=== PATIENT | male | born 1930 | race Caucasian/White ===

== ENCOUNTER 2017-05-01 19:45 | Emergency (ER) | payer OTHER, MEDICAID ==
[~2017-05-01 19:45] MED LIST: ASPIR LOW81 MG PO; ATENOLOL PO; ATORVASTATIN CA40 MG PO; BAY PO; BETHANECHOL25 MG PO; COL100 PO; FLO4 PO; FUROSEMIDE20 MG PO; L20 PO; LAC15L PO; LANTI SQ; LANTUS SOLOS100 U/M1 SQ; LIPI20 PO; LISINOPRIL20 MG PO; METFORMIN HCL500 MG PO; METFORMIN500 MG PO; PRI20 PO; PROPECIA1 MG PO; PROS5 PO; PROSCAR5 MG PO; REG5 PO; SYN25 PO; TENORMIN25 MG PO; TRE400 PO
[2017-05-01 20:46] LABS: BASOPHIL % 0.5 % (0-2); RED CELL DISTRIBUTION WIDTH 13.4 % (11.5-14.5)
[2017-05-01 20:49] LABS: PLATELET COUNT 124 x10^3mcL (130-400)
[2017-05-01 20:54] LABS: CALCIUM 9.5 mg/dL (8.5-10.1); CARBON DIOXIDE 23.3 mmol/L (21-32); CHLORIDE SERUM 105 mmol/L (98-107); CREATININE SERUM 1.8 mg/dL (0.7-1.3); GLUCOSE SERUM 195 mg/dL (74-106); POTASSIUM SERUM 4.9 mmol/L (3.5-5.1); SODIUM SERUM 140 mmol/L (136-145)
[2017-05-01 20:58] LABS: ALBUMIN 4.1 g/dL (3.4-5.0); ALKALINE PHOSPHATASE 100 U/L (46-116); ALT/SGPT 27 U/L (16-63); AST/SGOT 24 U/L (15-37); BILIRUBIN TOTAL 0.6 mg/dL (0.20-1.00); TOTAL PROTEIN, SERUM 7.8 g/dL (6.4-8.2)
[2017-05-01 22:04] VITALS: BP 132/89
== END 2017-05-01 22:04 | disposition home or self-care (01) ==
LOC: ED 19:45
PROVIDERS: Emergency Medicine
DX: R10.84 Generalized abdominal pain (principal); R10.30 Lower abdominal pain, unspecified; I10 Essential (primary) hypertension; E11.9 Type 2 diabetes mellitus without complications; E78.00 Pure hypercholesterolemia, unspecified; Z79.4 Long term (current) use of insulin; Z79.84 Long term (current) use of oral hypoglycemic drugs
CPT/HCPCS: J2405; J7030

== ENCOUNTER → 2017-09-05 | Outpatient (CLI) | payer OTHER, MEDICAID ==
[2017-09-05 10:08] LABS: ALKALINE PHOSPHATASE 91 U/L (46-116); ALT/SGPT 31 U/L (16-63); AST/SGOT 24 U/L (15-37); BILIRUBIN TOTAL 0.4 mg/dL (0.20-1.00); CALCIUM 9.4 mg/dL (8.5-10.1); CARBON DIOXIDE 25.3 mmol/L (21-32); CHLORIDE SERUM 108 mmol/L (98-107); CHOLESTEROL 160 mg/dL (<200); CREATININE SERUM 1.8 mg/dL (0.7-1.3); GLUCOSE SERUM 118 mg/dL (74-106); SODIUM SERUM 140 mmol/L (136-145); TOTAL PROTEIN, SERUM 7.9 g/dL (6.4-8.2); TRIGLYCERIDES 59 mg/dL (<150)
[2017-09-05 10:11] LABS: CHOLESTEROL/HDL RATIO 2.5; HDL CHOLESTEROL 63 mg/dL (40-60)
[2017-09-05 10:33] LABS: BASOPHIL % 0.3 % (0-2); RED CELL DISTRIBUTION WIDTH 13.8 % (11.5-14.5)
[2017-09-05 10:34] LABS: PLATELET COUNT 118 x10^3mcL (130-400)
[2017-09-05 10:52] LABS: microscopic required? YES; urine erythrocyte 1+ (NEGATIVE)
[2017-09-05 11:19] LABS: CREATININE UR 40.6 mg/dL
== END | disposition home or self-care (01) ==
LOC: LB 08:59
PROVIDERS: Family Medicine
DX: N18.3 Chronic kidney disease, stage 3 (moderate) (principal); I12.9 Hypertensive chronic kidney disease with stage 1 through stage 4 chronic kidney disease, or unspecified chronic kidney disease; E11.22 Type 2 diabetes mellitus with diabetic chronic kidney disease; E78.5 Hyperlipidemia, unspecified
CPT/HCPCS: 84153

== ENCOUNTER → 2018-05-15 | Outpatient (CLI) | payer OTHER, MEDICAID ==
[2018-05-15 09:24] LABS: BASOPHIL % 0.3 % (0-2)
[2018-05-15 09:26] LABS: PLATELET COUNT 128 x10^3mcL (130-400); RED CELL DISTRIBUTION WIDTH 14.6 % (11.5-14.5)
[2018-05-15 09:33] LABS: ALBUMIN 4.1 g/dL (3.4-5.0); ALKALINE PHOSPHATASE 97 U/L (46-116); ALT/SGPT 37 U/L (16-63); AST/SGOT 21 U/L (15-37); BILIRUBIN TOTAL 0.5 mg/dL (0.20-1.00); CALCIUM 9.5 mg/dL (8.5-10.1); CHLORIDE SERUM 111 mmol/L (98-107); CREATININE SERUM 1.8 mg/dL (0.7-1.3); GLUCOSE SERUM 143 mg/dL (74-106); SODIUM SERUM 141 mmol/L (136-145); TOTAL PROTEIN, SERUM 8.1 g/dL (6.4-8.2)
[2018-05-15 11:11] LABS: microscopic required? YES; urine erythrocyte 1+ (NEGATIVE)
[2018-05-15 12:22] LABS: POTASSIUM SERUM 5.7 mmol/L (3.5-5.1)
[2018-05-16 20:21] LABS: microalbumin:creatinine ratio 22.9 (0.0-30.0)
== END | disposition home or self-care (01) ==
LOC: LB 08:56
PROVIDERS: Internal Medicine
DX: N18.3 Chronic kidney disease, stage 3 (moderate) (principal); I12.9 Hypertensive chronic kidney disease with stage 1 through stage 4 chronic kidney disease, or unspecified chronic kidney disease; E11.22 Type 2 diabetes mellitus with diabetic chronic kidney disease; E78.5 Hyperlipidemia, unspecified
CPT/HCPCS: 84153

== ENCOUNTER → 2018-08-21 | Outpatient (CLI) | payer OTHER, MEDICAID ==
[2018-08-21 09:44] LABS: ALBUMIN 3.7 g/dL (3.4-5.0); ALKALINE PHOSPHATASE 105 U/L (46-116); ALT/SGPT 43 U/L (16-63); AST/SGOT 62 U/L (15-37); CALCIUM 9.4 mg/dL (8.5-10.1); CARBON DIOXIDE 27.4 mmol/L (21-32); CHLORIDE SERUM 107 mmol/L (98-107); CREATININE SERUM 1.6 mg/dL (0.7-1.3); GLUCOSE SERUM 271 mg/dL (74-106); POTASSIUM SERUM 4.9 mmol/L (3.5-5.1); SODIUM SERUM 142 mmol/L (136-145); TOTAL PROTEIN, SERUM 7.6 g/dL (6.4-8.2)
[2018-08-21 09:59] LABS: BASOPHIL % 0.3 % (0-2); PLATELET COUNT 130 x10^3mcL (130-400); RED CELL DISTRIBUTION WIDTH 13.5 % (11.5-14.5)
[2018-08-21 11:54] LABS: microscopic required? YES; urine erythrocyte 2+ (NEGATIVE)
== END | disposition home or self-care (01) ==
LOC: LB 08:36
PROVIDERS: Internal Medicine
DX: I12.9 Hypertensive chronic kidney disease with stage 1 through stage 4 chronic kidney disease, or unspecified chronic kidney disease (principal); E11.22 Type 2 diabetes mellitus with diabetic chronic kidney disease; E78.5 Hyperlipidemia, unspecified

== ENCOUNTER 2018-11-12 04:20 | Emergency (ER) | payer OTHER, MEDICAID ==
[~2018-11-12] VITALS: Ht 185.4 cm; Wt 69.1 kg
[2018-11-12 04:26] VITALS: Ht 185.4 cm; Wt 69.1 kg
[2018-11-12 05:19] LABS: BASOPHIL % 0.3 % (0-2); PLATELET COUNT 116 x10^3mcL (130-400); RED CELL DISTRIBUTION WIDTH 14.5 % (11.5-14.5)
[2018-11-12 05:28] LABS: CALCIUM 8.8 mg/dL (8.5-10.1); CARBON DIOXIDE 21.4 mmol/L (21-32); CHLORIDE SERUM 112 mmol/L (98-107); CREATININE SERUM 1.6 mg/dL (0.7-1.3); GLUCOSE SERUM 132 mg/dL (74-106); POTASSIUM SERUM 4.5 mmol/L (3.5-5.1); SODIUM SERUM 143 mmol/L (136-145)
[2018-11-12 05:33] LABS: ALBUMIN 3.6 g/dL (3.4-5.0); ALKALINE PHOSPHATASE 99 U/L (46-116); ALT/SGPT 33 U/L (16-63); AST/SGOT 31 U/L (15-37); BILIRUBIN TOTAL 0.46 mg/dL (0.20-1.00); TOTAL PROTEIN, SERUM 6.8 g/dL (6.4-8.2)
[2018-11-12 05:59] VITALS: BP 142/81
== END 2018-11-12 05:59 | disposition home or self-care (01) ==
LOC: ED 04:20
PROVIDERS: Emergency Medicine
DX: K57.90 Diverticulosis of intestine, part unspecified, without perforation or abscess without bleeding (principal); K80.80 Other cholelithiasis without obstruction; I10 Essential (primary) hypertension; E11.9 Type 2 diabetes mellitus without complications; E78.00 Pure hypercholesterolemia, unspecified; E03.9 Hypothyroidism, unspecified; Z98.890 Other specified postprocedural states
CPT/HCPCS: 36415

== ENCOUNTER → 2019-05-06 | Outpatient (CLI) | payer OTHER, MEDICAID ==
[2019-05-06 10:19] LABS: BASOPHIL % 0.2 % (0-2); PLATELET COUNT 132 x10^3mcL (130-400)
== END | disposition home or self-care (01) ==
LOC: LB 08:14
PROVIDERS: Internal Medicine Gastroenterology
DX: R10.9 Unspecified abdominal pain (principal); Z79.899 Other long term (current) drug therapy
CPT/HCPCS: 87338

== ENCOUNTER 2019-05-14 05:02 | Emergency (ER) | payer OTHER, MEDICAID ==
[~2019-05-14] VITALS: Ht 190.5 cm; Wt 69.4 kg
[2019-05-14 05:15] VITALS: Ht 190.5 cm; Wt 69.4 kg
[2019-05-14 06:33] LABS: BASOPHIL % 0.3 % (0-2); PLATELET COUNT 133 x10^3mcL (130-400); RED CELL DISTRIBUTION WIDTH 13.1 % (11.5-14.5)
[2019-05-14 06:57] LABS: CALCIUM 9.2 mg/dL (8.5-10.1); CARBON DIOXIDE 24.2 mmol/L (21-32); CHLORIDE SERUM 109 mmol/L (98-107); CREATININE SERUM 1.5 mg/dL (0.7-1.3); GLUCOSE SERUM 163 mg/dL (74-106); POTASSIUM SERUM 4.8 mmol/L (3.5-5.1); SODIUM SERUM 142 mmol/L (136-145)
[2019-05-14 07:02] LABS: ALBUMIN 3.5 g/dL (3.4-5.0); ALKALINE PHOSPHATASE 101 U/L (46-116); ALT/SGPT 34 U/L (16-63); AST/SGOT 40 U/L (15-37); TOTAL PROTEIN, SERUM 7.3 g/dL (6.4-8.2)
[2019-05-14 08:15] VITALS: BP 140/65
[2019-05-14 08:15] LABS: microscopic required? YES; urine erythrocyte 1+ (NEGATIVE)
== END 2019-05-14 08:53 | disposition home or self-care (01) ==
LOC: ED 05:02
DX: R53.1 Weakness (principal); I10 Essential (primary) hypertension; E11.9 Type 2 diabetes mellitus without complications; E78.00 Pure hypercholesterolemia, unspecified; R41.0 Disorientation, unspecified
CPT/HCPCS: 36415; 82962; J2405; Q0092

== ENCOUNTER 2019-06-08 00:47 | Emergency (ER) | payer OTHER, MEDICAID ==
[~2019-06-08] VITALS: Ht 182.9 cm; Wt 70.8 kg
[2019-06-08 00:54] VITALS: Ht 182.9 cm; Wt 70.8 kg
[2019-06-08 01:57] LABS: BASOPHIL % 0.4 % (0-2); PLATELET COUNT 133 x10^3mcL (130-400); RED CELL DISTRIBUTION WIDTH 13.7 % (11.5-14.5)
[2019-06-08 02:07] LABS: CALCIUM 8.9 mg/dL (8.5-10.1); CARBON DIOXIDE 24.6 mmol/L (21-32); CHLORIDE SERUM 105 mmol/L (98-107); CREATININE SERUM 1.7 mg/dL (0.7-1.3); GLUCOSE SERUM 198 mg/dL (74-106); POTASSIUM SERUM 4.5 mmol/L (3.5-5.1); SODIUM SERUM 139 mmol/L (136-145)
[2019-06-08 02:17] LABS: ALBUMIN 3.6 g/dL (3.4-5.0); ALKALINE PHOSPHATASE 105 U/L (46-116); ALT/SGPT 31 U/L (16-63); AST/SGOT 36 U/L (15-37); TOTAL PROTEIN, SERUM 7.4 g/dL (6.4-8.2)
[2019-06-08 02:20] LABS: C REACTIVE PROTEIN < 0.2 mg/dL (<=0.9); FREE T4 0.99 ng/dL (0.76-1.46); T4(THYROXINE) 9.2 ug/dL (4.7-13.3)
[2019-06-08 02:21] LABS: T3 TOTAL 1.37 ng/mL
[2019-06-08 02:22] LABS: CK-MB 13.1 ng/mL (0-3.6)
[2019-06-08 02:45] LABS: ERYTHROCYTE SED RATE 40 mm/hr (0-20)
[2019-06-08 03:10] LABS: UA SPECIFIC GRAVITY <=1.005 (1.005-1.035); microscopic required? YES; urine erythrocyte 1+ (NEGATIVE)
[2019-06-08 04:14] VITALS: BP 149/62
== END 2019-06-08 04:14 | disposition home or self-care (01) ==
LOC: ED 00:47
PROVIDERS: Specialist
DX: R42 Dizziness and giddiness (principal); R06.02 Shortness of breath; I10 Essential (primary) hypertension; E11.9 Type 2 diabetes mellitus without complications; E78.00 Pure hypercholesterolemia, unspecified; Z98.890 Other specified postprocedural states
CPT/HCPCS: 36415; 36600; 83880; 84439; 87804

== ENCOUNTER 2019-11-19 23:46 | Emergency (ER) | payer OTHER, MEDICAID ==
[~2019-11-19] VITALS: Ht 182.9 cm; Wt 71.2 kg
[2019-11-20] VITALS: Ht 182.9 cm; Wt 71.2 kg
[2019-11-20 00:44] LABS: BASOPHIL % 0.1 % (0-2); RED CELL DISTRIBUTION WIDTH 13.5 % (11.5-14.5)
[2019-11-20 00:45] LABS: PLATELET COUNT 108 x10^3mcL (130-400)
[2019-11-20 00:54] LABS: CALCIUM 9.1 mg/dL (8.5-10.1); CARBON DIOXIDE 24.4 mmol/L (21-32); CHLORIDE SERUM 104 mmol/L (98-107); CREATININE SERUM 1.9 mg/dL (0.7-1.3); GLUCOSE SERUM 268 mg/dL (74-106); POTASSIUM SERUM 4.5 mmol/L (3.5-5.1); SODIUM SERUM 137 mmol/L (136-145)
[2019-11-20 00:55] LABS: ALBUMIN 3.5 g/dL (3.4-5.0); ALKALINE PHOSPHATASE 80 U/L (46-116); ALT/SGPT 24 U/L (16-63); AST/SGOT 19 U/L (15-37); TOTAL PROTEIN, SERUM 6.8 g/dL (6.4-8.2)
[2019-11-20 01:05] LABS: FREE T4 1.27 ng/dL (0.76-1.46)
[2019-11-20 01:59] LABS: UA SPECIFIC GRAVITY <=1.005 (1.005-1.035); microscopic required? YES; urine erythrocyte 2+ (NEGATIVE)
[2019-11-20 05:09] VITALS: BP 128/87
== END 2019-11-20 05:09 | disposition home or self-care (01) ==
LOC: ED 23:46
PROVIDERS: Emergency Medicine
DX: R11.10 Vomiting, unspecified (principal); R42 Dizziness and giddiness; R53.1 Weakness; R63.0 Anorexia; I10 Essential (primary) hypertension; E11.9 Type 2 diabetes mellitus without complications; E78.00 Pure hypercholesterolemia, unspecified
CPT/HCPCS: 36415; 82962; 84439; Q0092